=== PATIENT | male | born 1950 | race Caucasian/White ===

== ENCOUNTER 2017-03-16 12:36 | Inpatient (IN) | payer OTHER ==
[~2017-03-16] VITALS: Ht 172.7 cm; Wt 84.2 kg
--- NOTE | ~2017-03-16 | O ---
[facility] [place] [address] OPERATIVE REPORT Name: CRISTIAN STATON Deana Room #: 459-P ADM IN M.R.#: [id number] Admission: 03/16/17 Attend Phys: Bob Gilbert MD Discharge: Date of : 46 Report #: [id number] THIS REPORT FOR: //name// CC: Steve Judge MD [facility] Magdi Gilbert DATE OF SERVICE: 03/17/2017 PREOPERATIVE DIAGNOSIS: Gross hematuria. POSTOPERATIVE DIAGNOSIS: Gross hematuria. PROCEDURE: Cystoscopy, evacuation of blood clots and fulguration of prostate. SURGEON: Vinayak Duran MD. ANESTHESIA: General. OPERATIVE SUMMARY: The patient brought to the operating room and administered general anesthesia. The patient was then placed in the lithotomy position. The patient's abdomen, perineum and penis were prepped and draped in usual fashion. The patient received Rocephin 1 gram IV preoperatively. The 24-Kazakh resectoscope sheath was then easily placed into the bladder. The bladder was evacuated of about a half cup of blood clots. Evaluation of the prostatic fossa revealed just some small areas of bleeding one along the bladder neck and several near the apex of the prostate. There was no arterial pumping. The patient's prostatic tissue is friable, which makes it more prone to bleeding. Using the plasma button, I cauterized the entire prostatic fossa of the bladder neck where there was a small bleeder near the apex where the other small bleeders were used. The bladder was evaluated extensively with no evidence of any bleeding occurring within the bladder. I stopped the water flow and observed the prostatic fossa after the fulguration had been completed and there was no bleeding whatsoever in any portion of the prostate or bladder. A 24-Kazakh 3-way Manning was placed. It irrigated easily and the urine was noted to be clear. The patient tolerated the procedure well and left the operating room in stable condition. By: [id number] Vinayak Duran MD /nt
--- NOTE | ~2017-03-16 | HC ---
[facility] [place] [address] CONSULTATION Name: CRISTIAN STATON Room #: 459-P [facility] IN .R.#: [id number] Admission: 03/16/17 Attend Phys: Bob Gilbert MD Discharge: 03/19/17 Date of : 46 Report #: [id number] THIS REPORT FOR: //name// CC: Magdi Gilbert DATE OF SERVICE: 03/16/2017 HISTORY OF PRESENT ILLNESS: The patient is a 66-year-old male well known to myself. He has dual prosthetic mechanical valve replacement, aortic and mitral in 2002. I have an echo Doppler from 08/2016, which shows appropriately functioning of these valves, it was a #23 St[place] Dieudonne in the aortic position, #31 in the mitral position. Mild mitral regurgitation and borderline LVH with an EF of 50%. He subsequently underwent a TURP procedure by Dr. Duran. Anticoagulation was held and he did well, started on some Lovenox postoperatively and then Coumadin back. He had cleared for a while. He had recurrent bleeding, and then taken back exactly one week ago. The initial surgery now was 2-1/2 weeks ago and the second surgery for clot evacuation and fulguration was one week ago on 03/10. He was discharged on Lovenox and Coumadin. Unfortunately, he started bleeding again. The hemoglobin was 9.3, 48 hours ago and 7.8 this morning. He was awoken by continued hematuria with clots and just feeling generalized weak. He came to the emergency room and subsequently admitted. I had instructed him to do so. HOME MEDICATIONS: Had been glimepiride, metoprolol 100, Zyrtec, warfarin, Lovenox, Proscar, Keflex 500 q. 12 hours, metformin 1000 b.i.d. PAST MEDICAL HISTORY: Positive for the dual valve replacement, pacemaker placement as above in 2002, these are mechanical valve, on chronic anticoagulation, splenectomy, endocarditis, tonsillectomy and hemorrhoidectomy. The valves were initially placed for valve endocarditis, sick sinus syndrome and subsequent pacemaker placement. SOCIAL HISTORY: He is , never tobacco user or drugs, 3-4 cups of coffee a day. He has children. ALLERGIES: LEVAQUIN. FAMILY HISTORY: Father had a bypass at age 62. Mother with hypertension. REVIEW OF SYSTEMS: Negative with a persistent bladder issue and hematuria and as stated above. LABORATORY DATA: Hemoglobin was 7.8, repeat 6 hours later 7.4. Sodium 132, creatinine 1.1. INR 1.1. H and H 7.4 and 22, white count 7.5. He did undergo CT of the abdomen and pelvis. Blood was noted in the urinary bladder, no other [address] [address] CONSULTATION Name: CRISTIAN STATON Room #: 459-P [facility] IN M.R.#: [id number] Admission: 03/16/17 Attend Phys: Bob Gilbert MD Discharge: 03/19/17 Date of : 46 Report #: [id number] processes were found. PHYSICAL EXAMINATION: VITAL SIGNS: Blood pressure 94/60, pulse 60s. HEENT: Eyes reveal xanthelasmas. Pharynx is clear. NECK: Shows preserved upstrokes without JVD or bruits. LUNGS: Clear. CARDIOVASCULAR: Regular rate and rhythm, S1, S2, mechanical. First and second heart sounds. ABDOMEN: Soft. No HSM or abdominal bruit. EXTREMITIES: Reveal no edema. Distal pulses were intact. NEUROLOGIC: Nonfocal. SKIN: Warm and dry without xanthoma or ulcer. MUSCULOSKELETAL: No gross joint deformity. ASSESSMENT: 1. Persistent anemia due to persistent postop prostate, bladder surgery. Currently on CBI. 2. Anemia with the following hemoglobin now 7.4, hemodynamically stable. 3. Dual mechanical prosthetic valves in the aortic and mitral position placed, 2002. 4. Sick sinus syndrome, permanent pacemaker, 2002. 5. Diabetes. RECOMMENDATIONS AND PLAN: We will initiate heparin. We had no anticoagulation since Lovenox dose last night. There is some red-appearing urine, although no clots. I would initiate heparin without a bolus here because of the dual valve issue. At least it could be quickly turned off. Serial hemoglobins have been ordered. Repeat echo in the morning, although I would not expect any changes from the echo of 08/2016. Await for a final urologic eval and what are the options may be here. We will hold on restarting beta rian and metformin currently. We will continue to follow with you. Thank you for asking me to assist in the care of this patient. <ELECTRONICALLY SIGNED> By: Steve Judge MD, [facility] 03/21/17 0855 [id number] [id number] Steve Judge MD, FACC /nt
--- NOTE | ~2017-03-16 | 2DMMODE ---
[facility] [employer] [place] [address] 2 D/M-MODE ECHOCARDIOGRAM Name: CRISTIAN STATON Room #: 459-P ADM IN .R.#: [id number] Admission: 03/16/17 Attend Phys: Brenden Skinner Discharge: Date of : 46 Date of Service: 03/18/17 0942 Report #: [id number] THIS REPORT FOR: //name// APPROVED REPORT Study performed: 03/17/2017 12:55:01 EXAM: Comprehensive 2D, Doppler, and color-flow Echocardiogram Patient Location: Bedside Room #: 459 Blood Pressure: 119/68 mmHg HR: 61 bpm Rhythm: NSR Other Information Study Quality: Adequate Indications Aortic and mitral valve replacements. Pacemaker. Hx: Endocarditis 2D Dimensions RVDd: 39.22 mm LVEF(%): 54.61 (>50%) IVSd: 13.20 (7-11mm) LVDd: 44.21 mm PWd: 12.35 (7-11mm) Ascending Ao: 39.39 (22-36mm) LVDs: 31.77 (25-40mm) Aortic Root: 36.25 mm Mariee's LVEF: 54.61 % Volumes Left Atrial Volume (Systole) Single Plane 4CH: 80.45 mL Single Plane 2CH: 82.75 mL LA ESV Index: 48.00 mL/m2 Aortic Valve AoV Peak Ermias.: 3.01 m/s AO Peak Gr.: 36.26 mmHg LVOT Max P.26 mmHg AO Mean Gr.: 18.23 mmHg AO V2 Mean: 2.02 m/s LVOT Max V: 0.90 m/s AO V2 VTI: 64.16 cm Mitral Valve [facility] [address] [place] [address] 2 D/M-MODE ECHOCARDIOGRAM Name: STATONCRISTIAN Room #: 459-P [facility] IN ..#: [id number] Admission: 03/16/17 Attend Phys: Brenden Skinner Discharge: Date of : 46 Date of Service: 03/18/17 0942 Report #: [id number] MV Decel. Time: 217.04 ms MV PHT: 62.94 ms Pulmonary Valve PV Peak Ermias.: 1.14 m/s PV Peak Gr.: 5.19 mmHg Tricuspid Valve TR Peak Ermias.: 3.28 m/s RAP Estimate: 5.00 mmHg TR Peak Gr.: 42.91 mmHg RVSP: 48.00 mmHg Left Ventricle The left ventricle is normal size. There is normal LV segmental wall motion. There is normal left ventricular wall thickness. Left ventricular systolic function is normal. LVEF is 60%. This study is not technically sufficient to allow evaluation of the LV diastolic function. Right Ventricle The right ventricle is normal size. The right ventricular systolic function is normal. Atria Left atrium is moderately dilated. Pacemaker lead is present in the right atrium. Right atrium is mildly dilated. Aortic Valve Mechanical aortic valve is present; #23 St. Dieudonne. Peak velocity is 3.0m/s with a peak pressure gradient of 36mmHg and a mean of 18mmHg. Trace to mild aortic regurgitation. Mitral Valve There is a mechanical mitral valve; #31 St. Dieudonne. Mean pressure gradient is 7mmHg. Difficult to assess mitral regurgitation due to prosthetic valve acoustic shadowing. Tricuspid Valve The tricuspid valve is normal in structure. There is mild to moderate tricuspid regurgitation. The right atrial pressure is estimated at 5 mmHg. There is moderate pulmonary hypertension with an estimated PAP of 48mmHg. Pulmonic Valve The pulmonary valve is normal in structure. Mild pulmonic regurgitation. [employer] [address] [address] 2 D/M-MODE ECHOCARDIOGRAM Name: CRISTIAN STATON Room #: 459-P [facility] IN [facility]#: [id number] Admission: 03/16/17 Attend Phys: Brenden Skinner Discharge: Date of : 46 Date of Service: 03/18/17 0942 Report #: [id number] The aortic root is normal in size. The ascending aorta is mildly dilated at 3.9cm. IVC is normal in size and collapses >50% with inspiration. Pericardium There is no pericardial effusion. <Conclusion> The left ventricle is normal size. LVEF is 60%. Left atrium is moderately dilated. Right atrium is mildly dilated. Trace to mild aortic regurgitation. There is a mechanical mitral valve; #31 St. Dieudonne. Mean pressure gradient is 7mmHg. Difficult to assess mitral regurgitation due to prosthetic valve acoustic shadowing. The tricuspid valve is normal in structure. There is mild to moderate tricuspid regurgitation. The right atrial pressure is estimated at 5 mmHg. There is moderate pulmonary hypertension with an estimated PAP of 48mmHg. Mild pulmonic regurgitation. <ELECTRONICALLY SIGNED> By: Yonathan Fox MD 03/18/17 0942 0942 0942 Yonathan Fox MD /INF
--- NOTE | ~2017-03-16 | H ---
[facility] [place] [address] HISTORY AND PHYSICAL Name: CRISTIAN STATON Room #: 459-P ADM IN M.R.#: [id number] Admission: 03/16/17 Attend Phys: Bob Gilbert MD Discharge: Date of : 46 Report #: [id number] THIS REPORT FOR: //name// CC: Cristian Gilbert DATE OF SERVICE: 03/16/2017 CHIEF COMPLAINT: Hematuria. HISTORY OF PRESENT ILLNESS: The patient is a 66-year-old male with history of atrial flutter, history of metallic St. Dieudonne aortic and mitral valve, history of recent TURP for BPH who presented to the Emergency Room secondary to hematuria and dizziness. The patient underwent TURP by Dr. Duran on 02/21/2017. Postoperatively, he had bleeding and they went and tried to cauterize. Apparently, the cauterization was unsuccessful because was not working right. The patient was then subsequently discharged back home on the 02/25/2017. The patient has been on on and off Lovenox before surgery and after the surgery. The patient had recurrent hematuria. He was evaluated by Dr. Duran last Tuesday and underwent cauterization. Apparently, the bleeding stopped and he was discharged back on Tuesday. The patient restarted back his Coumadin on Tuesday evening. On Tuesday, he started noticing moe hematuria. He has some lower abdominal discomfort. He also noticed severe dizziness today. No history of any chest pain, no palpitation, no shortness of breath. According to the labs performed on Tuesday, his INR was 1 and his hemoglobin 9.7. Today on presentation, his INR is 1.0, but his hemoglobin is down to 7.8. The patient still has moe hematuria. I was called by Dr. Fitch to admit the patient. The patient's modeler, Dr. Judge had also been contacted. Dr. Goncalves has been notified about the patient. The patient will be evaluated by urologist because of the rectal bleeding. PAST MEDICAL HISTORY: Significant for history of endocarditis, status post St. 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 PAST SURGICAL HISTORY: History of TURP, history of hemorrhoidectomy, history of tonsillectomy. ALLERGIES: He is allergic to LEVOFLOXACIN. Please look at the nursing documentation for the reaction. HOME MEDICATIONS: Please look at the nursing documentation[place] [address] HISTORY AND PHYSICAL Name: CRISTIAN STATON Room #: 459-P ADM IN ..#: [id number] Admission: 03/16/17 Attend Phys: Bob Gilbert MD Discharge: Date of : 46 Report #: [id number] reviewed. SOCIAL HISTORY: No smoking, alcohol abuse, or illicit drug abuse. FAMILY HISTORY: History of hypertension. REVIEW OF SYSTEMS: CONSTITUTIONAL: He has lost some weight, unable to quantify. No fever or chills. EYES: No change in vision. THROAT: Denies any sore throat. CARDIOVASCULAR: He has had dizziness, no syncope, no chest pain, no palpitation, no shortness of breath. RESPIRATORY: No cough or expectoration. GASTROINTESTINAL: No nausea or vomiting. GENITOURINARY: He has mild suprapubic discomfort. NEUROLOGIC: No focal numbness or weakness of the extremity. The 12-point review of system is negative other than the positive and negative dictated in the history of present illness and the review of system. PHYSICAL EXAMINATION: VITAL SIGNS: Blood pressure 130/72, heart rate of 70 per minute, afebrile. GENERAL: The patient is awake and alert, not in acute respiratory distress. EYES: Pupils equal, reactive to light, nonicteric conjunctivae. THROAT: Appears normal. NECK: Supple, no JVD, no bruit, no lymphadenopathy. CARDIOVASCULAR SYSTEM: S1, S2. The patient has a metallic click. He has no murmur. CHEST: Bilateral air entry present. Clear on auscultation. ABDOMEN: Soft, bowel sounds present, no mass, no organomegaly, no tenderness. PERIPHERY: No pedal edema. No calf tenderness. Dorsalis pedis 1+. NEUROLOGICAL: No gross motor or sensory deficit. The patient does have an indwelling Manning catheter with moe hematuria. LABORATORY DATA: Reviewed. His hemoglobin is 7.8. WBC is 7.1. His platelet is 450. INR is 1.0. His urine was positive for ketones, positive for blood, nitrites, and 6-15 wbc's more than 20 rbc's. BUN and creatinine are 19 and 1.1. Sodium is 132. ASSESSMENT AND PLAN: 1. Moe hematuria following transurethral resection of prostate on 02/21/2017. 2. The patient's hemoglobin is down to 7.8. We will do another hemoglobin at 6:00 p.m. and monitor hemoglobin closely. He may need more blood transfusion. 3. Urologist, Dr. Goncalves has been consulted. 4. Anemia secondary to acute blood loss. Monitor hemoglobin and transfuse as needed. [address] [place] [address] HISTORY AND PHYSICAL Name: CRISTIAN STATON Deana Room #: 459-P ADM IN M.R.#: [id number] Admission: 03/16/17 Attend Phys: Bob Gilbert MD Discharge: Date of : 46 Report #: [id number] Dieudonne aortic and mitral valve replacement. Soil Tester, Dr. Judge has been consulted. We will hold off on Lovenox at present because of his active gastrointestinal bleed. 6. The patient does understand the risks and the benefits of his anticoagulation at present. We will also obtain an echocardiogram. 7. Diabetes. We will obtain an A1c level. We will also place him on Accu-Chek and the sliding scale insulin. Treatment plan has been explained to the patient in detail. By: [id number] Bob Gilbert MD /nt
[~2017-03-16 12:36] MED LIST: ADULT LOW DOSE81 MG PO; CENTRUM SILVER1 EAC1 PO; COQ10 SG 100 S1 EACH PO; COUMADIN 5 MG TA5 M1 PO; DIOVAN160 MG PO; KEFLEX250 MG PO; TOPROL XL100 MG PO; VIAGRA PO; VITAMIN D1000 UNI1 PO
[2017-03-16 12:41] VITALS: BP 135/69
[2017-03-16 13:21] LABS: URINE BILIRUBIN NEGATIVE (Negative); URINE BLOOD 3+ (Negative); URINE COLOR RED; URINE GLUCOSE-RANDOM* 1+ (Negative); URINE KETONES 1+ (Negative); URINE LEUKOCYTES-REFLEX 3+ (Negative); URINE PROTEIN (DIPSTICK) 3+ (Negative); URINE UROBILINOGEN >= 8.0 E.U./dl (0.2-1.0)
[2017-03-16 13:23] LABS: CASTS None Seen /LPF (None Seen); SQUAMOUS 0-3 Few /LPF (0-3)
[2017-03-16 13:24] LABS: URINE RBC >20 Many /HPF (0-2); URINE WBC-REFLEX 6-15 Few /HPF (0-5)
[2017-03-16 13:25] LABS: CRYSTALS None Seen /LPF (None Seen)
[2017-03-16 13:28] LABS: BASOPHILS 1.8 % (0.0-2.0); EOSINOPHILS 2.4 % (0.0-3.0); HEMATOCRIT 23.3 % (42.0-52.0); HEMOGLOBIN 7.8 gm/dL (14.0-18.0); LYMPHOCYTES 15.9 % (24.0-44.0); MCH 29.1 pg (26.0-34.0); MCHC 33.4 g/dL (28.0-37.0); MCV 87.3 fL (80.0-100.0); MONOCYTES 9.7 % (1.0-8.0); PLATELET COUNT 450 thou/uL (150-400); POLYS 70.2 % (36.0-66.0); RBC 2.67 mil/uL (4.50-6.00); RDW 15.4 % (10.5-14.5); WBC 7.1 thou/uL (4.0-11.0)
[2017-03-16 13:29] LABS: MANUAL DIFF NO
[2017-03-16 13:31] LABS: CALCIUM 8.5 mg/dL (8.5-10.1); CREATININE 1.1 mg/dL (0.7-1.3); POTASSIUM 4.2 mmol/L (3.5-5.1)
[2017-03-16 13:38] LABS: APTT 26.4 Seconds (24.5-32.8); INR 1.1; PROTIME 10.9 Seconds (9.3-11.4)
[2017-03-16] MEDS ORDERED: GLUCOPHAGE1000 MG PO (16:36)
[2017-03-16] MEDS ORDERED: KEFLEX500 MG PO (16:37)
[2017-03-16] MEDS ORDERED: ALFUZOSIN HCL10 MG PO (16:38)
[2017-03-16] MEDS ORDERED: PROSCAR 5MG TABL5 MG PO (16:38)
[2017-03-16 17:00] VITALS: BP 125/59
[2017-03-16 17:24] LABS: ABSOLUTE NEUTROPHILS 4.7 thou/uL (1.4-8.2); BASOPHILS 1.5 % (0.0-2.0); EOSINOPHILS 2.9 % (0.0-3.0); HEMATOCRIT 22.2 % (42.0-52.0); HEMOGLOBIN 7.4 gm/dL (14.0-18.0); LYMPHOCYTES 24.5 % (24.0-44.0); MCH 28.8 pg (26.0-34.0); MCHC 33.3 g/dL (28.0-37.0); MCV 86.7 fL (80.0-100.0); MONOCYTES 9.4 % (1.0-8.0); PLATELET COUNT 414 thou/uL (150-400); POLYS 61.7 % (36.0-66.0); RBC 2.56 mil/uL (4.50-6.00); WBC 7.5 thou/uL (4.0-11.0)
[2017-03-16 17:25] LABS: MANUAL DIFF NO
[2017-03-16 19:42] VITALS: BP 93/52
[2017-03-16 23:37] VITALS: BP 97/46
[2017-03-17] VITALS (7 sets, daily range): BP systolic 106–143; BP diastolic 57–78
[2017-03-17 00:32] LABS: MCH 29.1 pg (26.0-34.0); MCHC 33.9 g/dL (28.0-37.0); MCV 85.9 fL (80.0-100.0); PLATELET COUNT 383 thou/uL (150-400); RBC 2.24 mil/uL (4.50-6.00); RDW 14.8 % (10.5-14.5)
[2017-03-17 00:43] LABS: CALCIUM 8.1 mg/dL (8.5-10.1); CREATININE 0.9 mg/dL (0.7-1.3); MAGNESIUM 1.8 mg/dL (1.8-2.4); POTASSIUM 4.1 mmol/L (3.5-5.1)
[2017-03-17 00:46] LABS: MANUAL DIFF YES
[2017-03-17 00:47] LABS: HEMATOCRIT 19.2 % (42.0-52.0); HEMOGLOBIN 6.5 gm/dL (14.0-18.0)
[2017-03-17 01:19] LABS: ABSOLUTE NEUTROPHILS 3.7 thou/uL (1.4-8.2); TOTAL CELL COUNT 100
[2017-03-17 01:20] LABS: BURR CELLS OCCASIONAL; HYPOCHROMASIA 1+; SCHISTOCYTES FEW
[2017-03-18 05:01] VITALS: BP 139/72
[2017-03-18 06:23] LABS: HEMATOCRIT 22.7 % (42.0-52.0); HEMOGLOBIN 7.6 gm/dL (14.0-18.0); MCH 28.9 pg (26.0-34.0); MCHC 33.7 g/dL (28.0-37.0); MCV 85.9 fL (80.0-100.0); RBC 2.64 mil/uL (4.50-6.00); RDW 15.1 % (10.5-14.5); WBC 9.3 thou/uL (4.0-11.0)
[2017-03-18 06:32] LABS: CALCIUM 8.4 mg/dL (8.5-10.1); POTASSIUM 3.8 mmol/L (3.5-5.1)
[2017-03-18 08:09] VITALS: BP 136/70
[2017-03-18 11:07] LABS: PROTIME 10.6 Seconds (9.3-11.4)
[2017-03-18 11:55] VITALS: BP 111/59
[2017-03-18] MEDS ORDERED: ENOXAPARIN80 MG/0.1 SUBQ (12:59)
[2017-03-18 16:00] VITALS: BP 130/80
[2017-03-18 20:00] VITALS: BP 126/66
[2017-03-18 20:43] VITALS: BP 126/66
[2017-03-19 03:58] VITALS: BP 126/71
[2017-03-19 06:12] LABS: HEMATOCRIT 22.1 % (42.0-52.0); HEMOGLOBIN 7.5 gm/dL (14.0-18.0); MCH 29.2 pg (26.0-34.0); MCHC 34.2 g/dL (28.0-37.0); MCV 85.3 fL (80.0-100.0); RBC 2.59 mil/uL (4.50-6.00); RDW 14.8 % (10.5-14.5); WBC 8.4 thou/uL (4.0-11.0)
[2017-03-19 06:21] LABS: CALCIUM 8.4 mg/dL (8.5-10.1)
[2017-03-19 06:25] LABS: PROTIME 10.6 Seconds (9.3-11.4)
[2017-03-19 07:22] VITALS: BP 140/69
[2017-03-19 11:12] VITALS: BP 140/69
== END 2017-03-19 12:50 | disposition home or self-care (01) | DRG 663 ==
LOC: ER 12:36 → 4W 14:24 → EROBS 14:24 → 4W 15:27
PROVIDERS: Emergency Medicine; Family Medicine; Internal Medicine; Nurse Practitioner Gerontology; Specialist
PROC: 0W3R8ZZ Control Bleeding in Genitourinary Tract, Via Natural or Artificial Opening Endoscopic (ICD-10-PCS; principal; 2017-03-17)
PROC: 30233N1 Transfusion of Nonautologous Red Blood Cells into Peripheral Vein, Percutaneous Approach (ICD-10-PCS; 2017-03-17)
PROC: 0T5B8ZZ Destruction of Bladder, Via Natural or Artificial Opening Endoscopic (ICD-10-PCS; 2017-03-17)
DX: R31.0 Gross hematuria (principal); D62 Acute posthemorrhagic anemia; I48.92 Unspecified atrial flutter; I49.5 Sick sinus syndrome; E11.9 Type 2 diabetes mellitus without complications; I10 Essential (primary) hypertension; E78.5 Hyperlipidemia, unspecified; Z82.49 Family history of ischemic heart disease and other diseases of the circulatory system; Z95.0 Presence of cardiac pacemaker; Z90.49 Acquired absence of other specified parts of digestive tract; Z90.81 Acquired absence of spleen; Z88.1 Allergy status to other antibiotic agents; Z95.2 Presence of prosthetic heart valve; Z79.01 Long term (current) use of anticoagulants
CPT/HCPCS: 10045; 50010; 50101; 52254; 56815; 57006; 62110; 62900; 70005

== ENCOUNTER → 2019-11-13 | Outpatient (CLI) | payer OTHER ==
[~2019-11-13] MED LIST changes: +ALFUZOSIN HCL10 MG PO; +ENOXAPARIN80 MG/0.1 SUBQ; +GLUCOPHAGE1000 MG PO; +KEFLEX500 MG PO; +PROSCAR 5MG TABL5 MG PO
== END ==
LOC: SJCVC 08:54
DX: Z51.81 Encounter for therapeutic drug level monitoring (principal); I48.91 Unspecified atrial fibrillation; I25.10 Atherosclerotic heart disease of native coronary artery without angina pectoris; Z95.0 Presence of cardiac pacemaker; Z79.01 Long term (current) use of anticoagulants

== ENCOUNTER → 2019-12-19 | Outpatient (CLI) | payer OTHER | LOC: SJCVC 15:34 | DX: Z45.018 Encounter for adjustment and management of other part of cardiac pacemaker (principal); I48.91 Unspecified atrial fibrillation; I49.5 Sick sinus syndrome; I10 Essential (primary) hypertension; I25.10 Atherosclerotic heart disease of native coronary artery without angina pectoris; Z95.2 Presence of prosthetic heart valve; Z79.01 Long term (current) use of anticoagulants ==

== ENCOUNTER → 2020-01-23 | Outpatient (CLI) | payer OTHER | LOC: SJCVCIMAG 14:54 | DX: Z45.018 Encounter for adjustment and management of other part of cardiac pacemaker (principal); I08.8 Other rheumatic multiple valve diseases; I11.9 Hypertensive heart disease without heart failure; I45.4 Nonspecific intraventricular block; R94.31 Abnormal electrocardiogram [ECG] [EKG]; I49.3 Ventricular premature depolarization; I48.21 Permanent atrial fibrillation; E78.00 Pure hypercholesterolemia, unspecified; I49.5 Sick sinus syndrome; E11.9 Type 2 diabetes mellitus without complications; D68.59 Other primary thrombophilia; I25.10 Atherosclerotic heart disease of native coronary artery without angina pectoris; Z95.2 Presence of prosthetic heart valve; Z79.899 Other long term (current) drug therapy; Z86.79 Personal history of other diseases of the circulatory system ==

== ENCOUNTER → 2020-04-28 | Outpatient (CLI) | payer OTHER | LOC: SJCVC 08:16 | PROVIDERS: ATTEND Internal Medicine Cardiovascular Disease | DX: I48.91 Unspecified atrial fibrillation (principal); R94.31 Abnormal electrocardiogram [ECG] [EKG]; I25.10 Atherosclerotic heart disease of native coronary artery without angina pectoris; E78.00 Pure hypercholesterolemia, unspecified; I10 Essential (primary) hypertension; E11.9 Type 2 diabetes mellitus without complications; D68.59 Other primary thrombophilia; I49.5 Sick sinus syndrome; Z95.2 Presence of prosthetic heart valve; Z95.0 Presence of cardiac pacemaker; Z79.01 Long term (current) use of anticoagulants; Z79.899 Other long term (current) drug therapy ==

== ENCOUNTER → 2020-05-28 | Outpatient (CLI) | payer OTHER | LOC: SJCVC 08:25 | PROVIDERS: ATTEND Internal Medicine Cardiovascular Disease | DX: Z45.018 Encounter for adjustment and management of other part of cardiac pacemaker (principal); I49.5 Sick sinus syndrome; I48.91 Unspecified atrial fibrillation; I25.10 Atherosclerotic heart disease of native coronary artery without angina pectoris; Z95.2 Presence of prosthetic heart valve; Z79.899 Other long term (current) drug therapy ==

== ENCOUNTER → 2020-06-25 | Outpatient (CLI) | payer OTHER | LOC: SJCVC 08:18 | PROVIDERS: ATTEND Internal Medicine Cardiovascular Disease | DX: Z51.81 Encounter for therapeutic drug level monitoring (principal); I48.91 Unspecified atrial fibrillation; I25.10 Atherosclerotic heart disease of native coronary artery without angina pectoris; Z95.2 Presence of prosthetic heart valve; Z95.0 Presence of cardiac pacemaker; Z79.01 Long term (current) use of anticoagulants; Z79.84 Long term (current) use of oral hypoglycemic drugs ==

== ENCOUNTER → 2020-07-03 | Outpatient (CLI) | payer OTHER | LOC: SJCVC 08:58 | PROVIDERS: ATTEND Internal Medicine Cardiovascular Disease | DX: Z51.81 Encounter for therapeutic drug level monitoring (principal); I48.91 Unspecified atrial fibrillation; I25.10 Atherosclerotic heart disease of native coronary artery without angina pectoris; Z95.2 Presence of prosthetic heart valve; Z79.01 Long term (current) use of anticoagulants; Z79.899 Other long term (current) drug therapy ==

== ENCOUNTER → 2020-07-10 | Outpatient (CLI) | payer OTHER | LOC: SJCVC 08:00 | PROVIDERS: ATTEND Internal Medicine Cardiovascular Disease | DX: Z51.81 Encounter for therapeutic drug level monitoring (principal); Z79.01 Long term (current) use of anticoagulants; I48.91 Unspecified atrial fibrillation; I25.10 Atherosclerotic heart disease of native coronary artery without angina pectoris; Z95.2 Presence of prosthetic heart valve ==

== ENCOUNTER → 2020-07-17 | Outpatient (CLI) | payer OTHER | LOC: SJCVC 11:44 | PROVIDERS: ATTEND Internal Medicine Cardiovascular Disease | DX: Z51.81 Encounter for therapeutic drug level monitoring (principal); I48.91 Unspecified atrial fibrillation; I25.10 Atherosclerotic heart disease of native coronary artery without angina pectoris; Z95.2 Presence of prosthetic heart valve; Z79.01 Long term (current) use of anticoagulants; Z79.899 Other long term (current) drug therapy; Z95.0 Presence of cardiac pacemaker ==

== ENCOUNTER → 2020-07-30 | Outpatient (CLI) | payer OTHER | LOC: SJCVC 08:28 | PROVIDERS: ATTEND Internal Medicine Cardiovascular Disease | DX: Z51.81 Encounter for therapeutic drug level monitoring (principal); I48.91 Unspecified atrial fibrillation; I25.10 Atherosclerotic heart disease of native coronary artery without angina pectoris; Z95.2 Presence of prosthetic heart valve; Z79.01 Long term (current) use of anticoagulants; Z79.899 Other long term (current) drug therapy ==

== ENCOUNTER → 2020-08-06 | Outpatient (CLI) | payer OTHER | LOC: SJCVC 08:20 | PROVIDERS: ATTEND Internal Medicine Cardiovascular Disease | DX: Z51.81 Encounter for therapeutic drug level monitoring (principal); I48.91 Unspecified atrial fibrillation; I25.10 Atherosclerotic heart disease of native coronary artery without angina pectoris; Z95.0 Presence of cardiac pacemaker; Z95.4 Presence of other heart-valve replacement ==

== ENCOUNTER 2020-08-18 01:54 | Emergency (ER) | payer OTHER ==
[~2020-08-18] VITALS: Ht 172.7 cm; Wt 68.0 kg
[2020-08-18] MEDS ORDERED: COUMADIN PO (02:15)
[2020-08-18] MEDS ORDERED: NORVASC 2.5 MG2.5 M1 PO (02:16)
[2020-08-18] MEDS ORDERED: GLUCOPHAGE1000 MG PO (02:17)
[2020-08-18] MEDS ORDERED: BENICAR40 MG PO (02:18)
[2020-08-18] MEDS ORDERED: PRAVACHOL40 MG PO (02:18)
[2020-08-18] MEDS ORDERED: MELATONIN1 M2 PO (02:20)
[2020-08-18 02:40] LABS: HEMATOCRIT 41.7 % (42.0-52.0); HEMOGLOBIN 13.6 gm/dL (14.0-18.0); MCH 31.1 pg (26.0-34.0); MCHC 32.7 g/dL (28.0-37.0); PLATELET COUNT 246 thou/uL (150-400); RBC 4.39 mil/uL (4.50-6.00); RDW 14.7 % (10.5-14.5); WBC 6.3 thou/uL (4.0-11.0)
[2020-08-18 02:41] LABS: ANION GAP 8 mmol/L (7-16); BUN 16 mg/dL (7-18); CALCIUM 9.1 mg/dL (8.5-10.1); CHLORIDE 106 mmol/L (98-107); CO2 28 mmol/L (21-32); CREATININE 1.2 mg/dL (0.7-1.3); GLUCOSE 126 mg/dL (74-106); POTASSIUM 3.8 mmol/L (3.5-5.1); SODIUM 142 mmol/L (136-145)
[2020-08-18 02:51] LABS: TROPONIN-I <0.06 ng/mL (<0.06)
[2020-08-18 02:54] LABS: INR 2.6; PROTIME 26.7 Seconds (9.3-11.4)
[2020-08-18 04:14] LABS: ABSOLUTE NEUTROPHILS 3.8 thou/uL (1.4-8.2)
[2020-08-18 06:35] VITALS: BP 134/79
--- NOTE | 2020-08-18 07:49 | EKG ---
[facility] [place] [address] ELECTROCARDIOGRAM REPORT Name: CRISTIAN STATON Deana Room #: DEP [facility]#: [id number] Admission: 08/18/20 Attend Phys: Discharge: 08/18/20 Date of : 46 Report #: [id number] THIS REPORT FOR: cc: Magdi Serna MD, Randy MD Lundgren,Leroy Rosario MD [facility] THIS REPORT FOR: //name// [facility] ED Test Date: 2020-08-18 Test Time: 02:06:46 Pat Name: CRISTIAN STATON Department: Room: Gender: Supervisor Pre Wave: [place] [id number] : 1950 Requested By: Nato Mcintyre Order Number: [id number] MD: Leroy Glover Measurements Intervals [place] Rate: 61 P: 0 TN: 148 QRS: -61 QRSD: 184 T: 99 QT: 477 QTc: 481 Interpretive Statements Ventricular-paced complexes No further analysis attempted due to paced rhythm Compared to ECG 12/03/2002 16:20:45 Ventricular pacing is now present Electronically Signed On 08-18-2020 7:49:34 CDT by Leroy Glover [email or web address] <ELECTRONICALLY SIGNED> By: Leroy Glover MD, FACC 08/18/20 0749 5 Leroy Glover MD, [facility] /EPI
== END 2020-08-18 06:35 | disposition home or self-care (01) ==
LOC: ER 01:54
PROVIDERS: Emergency Medicine
DX: R07.89 Other chest pain (principal); E11.9 Type 2 diabetes mellitus without complications; Z95.0 Presence of cardiac pacemaker; Z90.89 Acquired absence of other organs; Z79.899 Other long term (current) drug therapy

== ENCOUNTER → 2020-08-21 | Outpatient (CLI) | payer OTHER ==
[~2020-08-21] MED LIST changes: +BENICAR40 MG PO; +COUMADIN PO; +MELATONIN1 M2 PO; +NORVASC 2.5 MG2.5 M1 PO; +PRAVACHOL40 MG PO
== END ==
LOC: SJCVC 08:13
PROVIDERS: ATTEND Internal Medicine Cardiovascular Disease
DX: Z51.81 Encounter for therapeutic drug level monitoring (principal); I48.91 Unspecified atrial fibrillation; I25.10 Atherosclerotic heart disease of native coronary artery without angina pectoris; Z95.2 Presence of prosthetic heart valve; Z79.01 Long term (current) use of anticoagulants; Z79.899 Other long term (current) drug therapy

== ENCOUNTER → 2020-09-02 | Outpatient (CLI) | payer OTHER | LOC: SJCVCIMAG 07:49 | PROVIDERS: ATTEND Internal Medicine Cardiovascular Disease | DX: I25.10 Atherosclerotic heart disease of native coronary artery without angina pectoris (principal); I49.3 Ventricular premature depolarization; I10 Essential (primary) hypertension; I48.91 Unspecified atrial fibrillation; E11.9 Type 2 diabetes mellitus without complications; Z95.0 Presence of cardiac pacemaker; Z79.899 Other long term (current) drug therapy ==

== ENCOUNTER → 2020-09-17 | Outpatient (CLI) | payer OTHER | LOC: SJCVC 08:37 | PROVIDERS: ATTEND Internal Medicine Cardiovascular Disease | DX: Z51.81 Encounter for therapeutic drug level monitoring (principal); I48.91 Unspecified atrial fibrillation; I25.10 Atherosclerotic heart disease of native coronary artery without angina pectoris; Z95.2 Presence of prosthetic heart valve; Z95.0 Presence of cardiac pacemaker; Z79.01 Long term (current) use of anticoagulants; Z79.899 Other long term (current) drug therapy ==

== ENCOUNTER → 2020-10-01 | Outpatient (CLI) | payer OTHER | LOC: SJCVC 08:11 | PROVIDERS: ATTEND Internal Medicine Cardiovascular Disease | DX: Z51.81 Encounter for therapeutic drug level monitoring (principal); Z79.01 Long term (current) use of anticoagulants ==

== ENCOUNTER → 2020-11-03 | Outpatient (CLI) | payer OTHER | LOC: SJCVC 08:07 | PROVIDERS: ATTEND Internal Medicine Cardiovascular Disease | DX: Z51.81 Encounter for therapeutic drug level monitoring (principal); I48.91 Unspecified atrial fibrillation; I25.10 Atherosclerotic heart disease of native coronary artery without angina pectoris; Z79.01 Long term (current) use of anticoagulants; Z95.2 Presence of prosthetic heart valve; Z95.0 Presence of cardiac pacemaker ==

== ENCOUNTER → 2020-11-12 | Outpatient (CLI) | payer OTHER | LOC: SJCVC 08:03 | PROVIDERS: ATTEND Internal Medicine Cardiovascular Disease | DX: Z51.81 Encounter for therapeutic drug level monitoring (principal); I48.91 Unspecified atrial fibrillation; I25.10 Atherosclerotic heart disease of native coronary artery without angina pectoris; Z95.0 Presence of cardiac pacemaker; Z95.2 Presence of prosthetic heart valve; Z79.01 Long term (current) use of anticoagulants; Z79.899 Other long term (current) drug therapy ==

== ENCOUNTER → 2020-11-24 | Outpatient (CLI) | payer OTHER | LOC: SJCVC 08:55 | PROVIDERS: ATTEND Internal Medicine Cardiovascular Disease | DX: Z51.81 Encounter for therapeutic drug level monitoring (principal); Z79.01 Long term (current) use of anticoagulants; Z79.84 Long term (current) use of oral hypoglycemic drugs; Z79.899 Other long term (current) drug therapy ==

== ENCOUNTER → 2020-12-08 | Outpatient (CLI) | payer OTHER | LOC: SJCVC 09:09 | PROVIDERS: ATTEND Internal Medicine Cardiovascular Disease | DX: Z51.81 Encounter for therapeutic drug level monitoring (principal); Z79.01 Long term (current) use of anticoagulants; Z88.8 Allergy status to other drugs, medicaments and biological substances; Z95.2 Presence of prosthetic heart valve; Z72.89 Other problems related to lifestyle ==

== ENCOUNTER → 2020-12-22 | Outpatient (CLI) | payer OTHER | LOC: SJCVC 08:24 | PROVIDERS: ATTEND Internal Medicine Cardiovascular Disease | DX: Z51.81 Encounter for therapeutic drug level monitoring (principal); Z79.01 Long term (current) use of anticoagulants ==

== ENCOUNTER → 2021-01-07 | Outpatient (CLI) | payer OTHER | LOC: SJCVC 08:09 | PROVIDERS: ATTEND Internal Medicine Cardiovascular Disease | DX: Z51.81 Encounter for therapeutic drug level monitoring (principal); I48.91 Unspecified atrial fibrillation; I49.5 Sick sinus syndrome; I25.10 Atherosclerotic heart disease of native coronary artery without angina pectoris; Z95.0 Presence of cardiac pacemaker; Z95.2 Presence of prosthetic heart valve; Z79.01 Long term (current) use of anticoagulants ==

== ENCOUNTER → 2021-01-21 | Outpatient (CLI) | payer OTHER | LOC: SJCVC 10:25 | PROVIDERS: ATTEND Internal Medicine Cardiovascular Disease | DX: Z51.81 Encounter for therapeutic drug level monitoring (principal); Z79.01 Long term (current) use of anticoagulants; Z79.899 Other long term (current) drug therapy; Z79.84 Long term (current) use of oral hypoglycemic drugs ==

== ENCOUNTER → 2021-02-04 | Outpatient (CLI) | payer OTHER | LOC: SJCVCIMAG 08:19 | PROVIDERS: ATTEND Internal Medicine Cardiovascular Disease | DX: I08.8 Other rheumatic multiple valve diseases (principal); I11.9 Hypertensive heart disease without heart failure; I48.91 Unspecified atrial fibrillation; I49.5 Sick sinus syndrome; E78.00 Pure hypercholesterolemia, unspecified; E11.9 Type 2 diabetes mellitus without complications; Z95.0 Presence of cardiac pacemaker; Z95.2 Presence of prosthetic heart valve; Z88.8 Allergy status to other drugs, medicaments and biological substances; Z79.01 Long term (current) use of anticoagulants; Z79.84 Long term (current) use of oral hypoglycemic drugs; Z79.899 Other long term (current) drug therapy; Z82.49 Family history of ischemic heart disease and other diseases of the circulatory system ==

== ENCOUNTER → 2021-03-09 | Outpatient (CLI) | payer OTHER | LOC: SJCVC 08:44 | PROVIDERS: ATTEND Internal Medicine Cardiovascular Disease | DX: Z51.81 Encounter for therapeutic drug level monitoring (principal); I48.91 Unspecified atrial fibrillation; I49.5 Sick sinus syndrome; I25.10 Atherosclerotic heart disease of native coronary artery without angina pectoris; Z95.2 Presence of prosthetic heart valve; Z95.0 Presence of cardiac pacemaker; Z79.01 Long term (current) use of anticoagulants ==

== ENCOUNTER → 2021-03-18 | Outpatient (CLI) | payer OTHER | LOC: SJCVC 09:01 | PROVIDERS: ATTEND Internal Medicine Cardiovascular Disease | DX: Z51.81 Encounter for therapeutic drug level monitoring (principal); I48.91 Unspecified atrial fibrillation; I49.5 Sick sinus syndrome; I25.10 Atherosclerotic heart disease of native coronary artery without angina pectoris; Z95.2 Presence of prosthetic heart valve; Z79.01 Long term (current) use of anticoagulants ==

== ENCOUNTER → 2021-04-15 | Outpatient (CLI) | payer OTHER | LOC: SJCVC 08:17 | PROVIDERS: ATTEND Internal Medicine Cardiovascular Disease | DX: Z51.81 Encounter for therapeutic drug level monitoring (principal); I25.10 Atherosclerotic heart disease of native coronary artery without angina pectoris; E11.9 Type 2 diabetes mellitus without complications; I49.5 Sick sinus syndrome; Z79.01 Long term (current) use of anticoagulants; Z79.84 Long term (current) use of oral hypoglycemic drugs; Z88.0 Allergy status to penicillin; Z95.4 Presence of other heart-valve replacement; Z72.89 Other problems related to lifestyle; Z98.890 Other specified postprocedural states; Z79.899 Other long term (current) drug therapy ==

== ENCOUNTER → 2021-05-07 | Outpatient (CLI) | payer OTHER | LOC: SJCVC 08:26 | PROVIDERS: ATTEND Internal Medicine Cardiovascular Disease | DX: Z51.81 Encounter for therapeutic drug level monitoring (principal); I48.91 Unspecified atrial fibrillation; I49.5 Sick sinus syndrome; I25.10 Atherosclerotic heart disease of native coronary artery without angina pectoris; Z95.0 Presence of cardiac pacemaker; Z79.01 Long term (current) use of anticoagulants ==

== ENCOUNTER → 2021-05-20 | Outpatient (CLI) | payer OTHER | LOC: SJCVC 09:27 | PROVIDERS: ATTEND Internal Medicine Cardiovascular Disease | DX: Z51.81 Encounter for therapeutic drug level monitoring (principal); I48.91 Unspecified atrial fibrillation; I25.10 Atherosclerotic heart disease of native coronary artery without angina pectoris; Z95.2 Presence of prosthetic heart valve; Z95.0 Presence of cardiac pacemaker; Z79.01 Long term (current) use of anticoagulants; Z79.899 Other long term (current) drug therapy ==

== ENCOUNTER → 2021-06-03 | Outpatient (CLI) | payer OTHER | LOC: SJCVC 08:02 | PROVIDERS: ATTEND Internal Medicine Cardiovascular Disease | DX: Z51.81 Encounter for therapeutic drug level monitoring (principal); I48.91 Unspecified atrial fibrillation; I25.10 Atherosclerotic heart disease of native coronary artery without angina pectoris; Z95.0 Presence of cardiac pacemaker; Z95.2 Presence of prosthetic heart valve; Z79.01 Long term (current) use of anticoagulants; Z79.899 Other long term (current) drug therapy ==

== ENCOUNTER → 2021-07-01 | Outpatient (CLI) | payer OTHER | LOC: SJCVC 08:50 | PROVIDERS: ATTEND Internal Medicine Cardiovascular Disease | DX: Z51.81 Encounter for therapeutic drug level monitoring (principal); I25.10 Atherosclerotic heart disease of native coronary artery without angina pectoris; E11.9 Type 2 diabetes mellitus without complications; Z79.01 Long term (current) use of anticoagulants; Z79.84 Long term (current) use of oral hypoglycemic drugs; Z88.1 Allergy status to other antibiotic agents; Z95.4 Presence of other heart-valve replacement; Z98.890 Other specified postprocedural states; Z72.89 Other problems related to lifestyle ==

== ENCOUNTER → 2021-07-29 | Outpatient (CLI) | payer OTHER | LOC: SJCVC 08:00 | PROVIDERS: ATTEND Internal Medicine Cardiovascular Disease | DX: Z51.81 Encounter for therapeutic drug level monitoring (principal); I25.10 Atherosclerotic heart disease of native coronary artery without angina pectoris; E11.9 Type 2 diabetes mellitus without complications; Z79.1 Long term (current) use of non-steroidal anti-inflammatories (NSAID); Z79.84 Long term (current) use of oral hypoglycemic drugs; Z88.1 Allergy status to other antibiotic agents; Z95.4 Presence of other heart-valve replacement; Z98.890 Other specified postprocedural states; Z72.89 Other problems related to lifestyle; Z79.899 Other long term (current) drug therapy ==

== ENCOUNTER → 2021-08-26 | Outpatient (CLI) | payer OTHER | LOC: SJCVC 07:56 | PROVIDERS: ATTEND Internal Medicine Cardiovascular Disease | DX: Z51.81 Encounter for therapeutic drug level monitoring (principal); I25.10 Atherosclerotic heart disease of native coronary artery without angina pectoris; E11.9 Type 2 diabetes mellitus without complications; Z79.01 Long term (current) use of anticoagulants; Z79.84 Long term (current) use of oral hypoglycemic drugs; Z79.899 Other long term (current) drug therapy; Z88.8 Allergy status to other drugs, medicaments and biological substances; Z95.4 Presence of other heart-valve replacement; Z72.89 Other problems related to lifestyle ==

== ENCOUNTER → 2021-09-02 | Outpatient (CLI) | payer OTHER | LOC: SJCVC 07:56 | PROVIDERS: ATTEND Internal Medicine Cardiovascular Disease | DX: Z51.81 Encounter for therapeutic drug level monitoring (principal); Z79.01 Long term (current) use of anticoagulants; I48.91 Unspecified atrial fibrillation; I49.5 Sick sinus syndrome; I25.10 Atherosclerotic heart disease of native coronary artery without angina pectoris; R42 Dizziness and giddiness; Z95.2 Presence of prosthetic heart valve; Z95.0 Presence of cardiac pacemaker; Z79.84 Long term (current) use of oral hypoglycemic drugs; Z79.899 Other long term (current) drug therapy; Z88.8 Allergy status to other drugs, medicaments and biological substances ==

== ENCOUNTER → 2021-09-15 | Outpatient (CLI) | payer OTHER | LOC: SJCVC 07:53 | PROVIDERS: ATTEND Internal Medicine Cardiovascular Disease | DX: Z51.81 Encounter for therapeutic drug level monitoring (principal); Z79.01 Long term (current) use of anticoagulants; I25.10 Atherosclerotic heart disease of native coronary artery without angina pectoris; I49.5 Sick sinus syndrome; Z95.0 Presence of cardiac pacemaker; Z95.2 Presence of prosthetic heart valve; Z79.82 Long term (current) use of aspirin; Z79.899 Other long term (current) drug therapy; Z88.8 Allergy status to other drugs, medicaments and biological substances ==

== ENCOUNTER → 2021-10-14 | Outpatient (CLI) | payer OTHER | LOC: SJCVC 08:03 | PROVIDERS: ATTEND Internal Medicine Cardiovascular Disease | DX: Z51.81 Encounter for therapeutic drug level monitoring (principal); Z79.01 Long term (current) use of anticoagulants ==

== ENCOUNTER → 2021-11-11 | Outpatient (CLI) | payer OTHER | LOC: SJCVC 07:59 | PROVIDERS: ATTEND Internal Medicine Cardiovascular Disease | DX: Z51.81 Encounter for therapeutic drug level monitoring (principal); Z79.01 Long term (current) use of anticoagulants ==

== ENCOUNTER → 2021-12-03 | Outpatient (CLI) | payer OTHER | LOC: SJCVC 09:49 | PROVIDERS: ATTEND Internal Medicine Cardiovascular Disease | DX: R94.31 Abnormal electrocardiogram [ECG] [EKG] (principal); I48.92 Unspecified atrial flutter; R07.9 Chest pain, unspecified; I10 Essential (primary) hypertension; I48.91 Unspecified atrial fibrillation; E11.9 Type 2 diabetes mellitus without complications; D68.59 Other primary thrombophilia; I49.5 Sick sinus syndrome; I25.10 Atherosclerotic heart disease of native coronary artery without angina pectoris; Z95.0 Presence of cardiac pacemaker; Z95.2 Presence of prosthetic heart valve; Z86.79 Personal history of other diseases of the circulatory system; Z79.01 Long term (current) use of anticoagulants; Z79.84 Long term (current) use of oral hypoglycemic drugs; Z79.899 Other long term (current) drug therapy; Z72.89 Other problems related to lifestyle; Z82.49 Family history of ischemic heart disease and other diseases of the circulatory system; Z88.8 Allergy status to other drugs, medicaments and biological substances ==

== ENCOUNTER → 2021-12-09 | Outpatient (CLI) | payer OTHER | LOC: SJCVC 07:54 | PROVIDERS: ATTEND Internal Medicine Cardiovascular Disease | DX: Z51.81 Encounter for therapeutic drug level monitoring (principal); Z79.01 Long term (current) use of anticoagulants ==

== ENCOUNTER → 2021-12-14 | Outpatient (CLI) | payer OTHER | LOC: SJCVCIMAG 09:57 | PROVIDERS: ATTEND Internal Medicine Cardiovascular Disease | DX: I07.1 Rheumatic tricuspid insufficiency (principal); I48.91 Unspecified atrial fibrillation; E11.9 Type 2 diabetes mellitus without complications; I10 Essential (primary) hypertension; I25.10 Atherosclerotic heart disease of native coronary artery without angina pectoris; R07.9 Chest pain, unspecified ==